=== PATIENT | male | born 1960 | race Caucasian/White ===

== ENCOUNTER 2021-07-28 09:12 | Inpatient (IN) | payer OTHER ==
[2021-07-28 09:30] VITALS: BMI 23.8
[2021-07-28] MEDS ORDERED: ACETAMINOPHEN 325 MG TABLET (FP) PO PRN ×2 (10:17)
[2021-07-28] MEDS ORDERED: NICOTINE POLACRILEX 4 MG GUM BUC PRN (10:17)
[2021-07-28] MEDS ORDERED: cloNIDine HCL 0.1 MG TABLET PO PRN (10:17)
[2021-07-28] MEDS ORDERED: MAG HYDROX/AL HYDROX/SIMETH 30 ML UNIT-DOSE CUP PO PRN (10:17)
[2021-07-28] MEDS ORDERED: ONDANSETRON *ODT* 4 MG TABLET SL PRN (10:17)
[2021-07-28] MEDS ORDERED: NICOTINE 10 MG CARTRIDGE (INHALER) IH PRN (10:17)
[2021-07-28] MEDS ORDERED: MAGNESIUM HYDROX 2400MG/30ML ORAL SUSPENSION 30 ML CUP PO PRN (10:17)
[2021-07-28] MEDS ORDERED: MENTHOL/PHENOL 1 EACH UD MM PRN (10:17)
[2021-07-28] MEDS ORDERED: BISMUTH SUBSALICYLATE 524 MG/30 ML PO PRN (10:17)
[2021-07-28] MEDS ORDERED: IBUPROFEN 400 MG TABLET (FP) PO PRN (10:17)
[2021-07-28] MEDS ORDERED: methaDONE HCL 10 MG TABLET (FOR DETOX USE ONLY) PO ONE (10:17)
[2021-07-28] MEDS ORDERED: NICOTINE 21 MG/24 HOURS TOPICAL PATCH TD PRN (10:17)
[2021-07-28] MEDS ORDERED: MAGNESIUM CITRATE 300 ML BOTTLE PO PRN (10:17)
[2021-07-28] MEDS ORDERED: ALBUTEROL SO4 HFA INHALER IH PRN (10:29)
[2021-07-28] MEDS: BUDESONIDE/FORMETEROL FUMARATE 160/4.5 mcg INHALER IH SCH ×2 (11:35→22:36)
[2021-07-28] MEDS: METHOCARBAMOL 500 MG TABLET PO PRN (11:35)
[2021-07-28] MEDS: TAMSULOSIN HCL 0.4 MG CAP PO SCH (11:35)
[2021-07-28] MEDS: PANTOPRAZOLE 20 MG TABLET PO SCH (11:37)
[2021-07-28] MEDS: PRENATAL VITAMINS W/ FOLIC ACID TABLET (FP) PO SCH (11:38)
[2021-07-28] MEDS: METHYL SALICYLATE/MENTHOL OINT 30 GM TUBE TP SCH ×2 (13:49→22:35)
[2021-07-28] MEDS ORDERED: FLUoxetine HCL 20 MG CAPSULE PO ONE (14:00)
[2021-07-28] MEDS ORDERED: traZODone HCL 100 MG TABLET (FP) PO ONE (22:00)
[2021-07-28] MEDS ORDERED: PRAZOSIN HCL 1 MG CAPSULE PO ONE (22:00)
[2021-07-28] MEDS: ATORVASTATIN CA 40 MG TABLET (FP) PO SCH (22:35)
[2021-07-28] MEDS: MELATONIN 5 MG TABLETS PO SCH (22:35)
[2021-07-28] MEDS: THIAMINE HCL 100 MG TABLET (FP) PO SCH (22:36)
[2021-07-29] MEDS ORDERED: methaDONE HCL 10 MG TABLET (FOR DETOX USE ONLY) ONE (09:47)
[2021-07-29] MEDS: BUDESONIDE/FORMETEROL FUMARATE 160/4.5 mcg INHALER IH SCH ×2 (10:25→22:20)
[2021-07-29] MEDS: PRENATAL VITAMINS W/ FOLIC ACID TABLET (FP) PO SCH (10:25)
[2021-07-29] MEDS: TAMSULOSIN HCL 0.4 MG CAP PO SCH (10:26)
[2021-07-29] MEDS: PANTOPRAZOLE 20 MG TABLET PO SCH (10:26)
[2021-07-29] MEDS: METHYL SALICYLATE/MENTHOL OINT 30 GM TUBE TP SCH ×2 (10:28→22:01)
[2021-07-29] MEDS: METHOCARBAMOL 500 MG TABLET PO PRN (22:01)
[2021-07-29] MEDS: THIAMINE HCL 100 MG TABLET (FP) PO SCH (22:01)
[2021-07-29] MEDS: ATORVASTATIN CA 40 MG TABLET (FP) PO SCH (22:01)
[2021-07-29] MEDS: MELATONIN 5 MG TABLETS PO SCH (22:01)
[2021-07-30] MEDS ORDERED: methaDONE HCL 10 MG TABLET (FOR DETOX USE ONLY) PO ONE (10:00)
[2021-07-30 10:17] LABS: HEMOGLOBIN 13.1 GM/dL (11.7-16.9); MCH 28.8 pg (25.7-33.7); MCHC 32.8 g/dl (32.0-35.9); MEAN CELL VOLUME 87.9 fl (80-96); MEAN PLT VOLUME 7.8 fl (7.5-11.1); PLATELET COUNT 391 10^3/uL (134-434); RBC 4.55 M/mm3 (4.00-5.60); RDW 16.1 % (11.9-15.9); WHITE BLOOD COUNT 7.4 K/mm3 (4.0-10.0)
[2021-07-30 10:19] LABS: BLOOD UREA NITROGEN 10.2 mg/dL (7-18); CALCIUM 9.1 mg/dL (8.5-10.1)
[2021-07-30 10:20] LABS: ALBUMIN 3.1 g/dl (3.4-5.0)
[2021-07-30] MEDS: TAMSULOSIN HCL 0.4 MG CAP PO SCH (10:22)
[2021-07-30] MEDS: PANTOPRAZOLE 20 MG TABLET PO SCH (10:22)
[2021-07-30] MEDS: BUDESONIDE/FORMETEROL FUMARATE 160/4.5 mcg INHALER IH SCH ×2 (10:22→22:53)
[2021-07-30] MEDS: PRENATAL VITAMINS W/ FOLIC ACID TABLET (FP) PO SCH (10:22)
[2021-07-30] MEDS: METHYL SALICYLATE/MENTHOL OINT 30 GM TUBE TP SCH ×2 (10:23→22:31)
[2021-07-30 10:25] LABS: BILIRUBIN,TOTAL 0.2 mg/dL (0.2-1); TOT PROT 6.3 g/dl (6.4-8.2)
[2021-07-30 13:47] LABS: HIV INTERPRETATION NEGATIVE (NEGATIVE)
[2021-07-30] MEDS: ATORVASTATIN CA 40 MG TABLET (FP) PO SCH (22:53)
[2021-07-30] MEDS: THIAMINE HCL 100 MG TABLET (FP) PO SCH (22:53)
[2021-07-30] MEDS: MELATONIN 5 MG TABLETS PO SCH (22:53)
[2021-07-31] MEDS ORDERED: methaDONE HCL 10 MG TABLET (FOR DETOX USE ONLY) ONE (09:20)
[2021-07-31] MEDS: PANTOPRAZOLE 20 MG TABLET PO SCH (10:14)
[2021-07-31] MEDS: TAMSULOSIN HCL 0.4 MG CAP PO SCH (10:14)
[2021-07-31] MEDS: BUDESONIDE/FORMETEROL FUMARATE 160/4.5 mcg INHALER IH SCH ×2 (10:14→22:51)
[2021-07-31] MEDS: PRENATAL VITAMINS W/ FOLIC ACID TABLET (FP) PO SCH (10:14)
[2021-07-31] MEDS: METHYL SALICYLATE/MENTHOL OINT 30 GM TUBE TP SCH ×2 (10:16→22:51)
[2021-07-31] MEDS: ATORVASTATIN CA 40 MG TABLET (FP) PO SCH (22:44)
[2021-07-31] MEDS: THIAMINE HCL 100 MG TABLET (FP) PO SCH (22:44)
[2021-07-31] MEDS: MELATONIN 5 MG TABLETS PO SCH (22:46)
[2021-08-01] MEDS ORDERED: methaDONE HCL 10 MG TABLET (FOR DETOX USE ONLY) PO ONE (10:00)
[2021-08-01] MEDS: TAMSULOSIN HCL 0.4 MG CAP PO SCH (10:02)
[2021-08-01] MEDS: PRENATAL VITAMINS W/ FOLIC ACID TABLET (FP) PO SCH (10:02)
[2021-08-01] MEDS: PANTOPRAZOLE 20 MG TABLET PO SCH (10:02)
[2021-08-01] MEDS: BUDESONIDE/FORMETEROL FUMARATE 160/4.5 mcg INHALER IH SCH ×2 (10:03→22:57)
[2021-08-01] MEDS: METHYL SALICYLATE/MENTHOL OINT 30 GM TUBE TP SCH ×2 (10:03→22:57)
[2021-08-01] MEDS: ATORVASTATIN CA 40 MG TABLET (FP) PO SCH (22:57)
[2021-08-01] MEDS: MELATONIN 5 MG TABLETS PO SCH (22:57)
[2021-08-01] MEDS: THIAMINE HCL 100 MG TABLET (FP) PO SCH (22:58)
[2021-08-02 10:03] VITALS: BP 104/64; PULSE 59; TEMP 97.8
[2021-08-02] MEDS: PANTOPRAZOLE 20 MG TABLET PO SCH (10:45)
[2021-08-02] MEDS: BUDESONIDE/FORMETEROL FUMARATE 160/4.5 mcg INHALER IH SCH (10:45)
[2021-08-02] MEDS: METHYL SALICYLATE/MENTHOL OINT 30 GM TUBE TP SCH (10:45)
[2021-08-02] MEDS: PRENATAL VITAMINS W/ FOLIC ACID TABLET (FP) PO SCH (10:45)
[2021-08-02] MEDS: TAMSULOSIN HCL 0.4 MG CAP PO SCH (10:45)
== END 2021-08-02 12:30 | disposition home or self-care (01) | DRG 773 ==
LOC: YASAS 09:12 → Y6N 10:31
PROVIDERS: ADMIT Allergy & Immunology; ATTEND Allergy & Immunology
PROC: HZ2ZZZZ Detoxification Services for Substance Abuse Treatment (ICD-10-PCS; principal; 2021-07-28)
DX: F11.23 Opioid dependence with withdrawal (principal); F17.210 Nicotine dependence, cigarettes, uncomplicated; F31.9 Bipolar disorder, unspecified; F41.9 Anxiety disorder, unspecified; F90.9 Attention-deficit hyperactivity disorder, unspecified type; F43.10 Post-traumatic stress disorder, unspecified; J44.9 Chronic obstructive pulmonary disease, unspecified; K21.9 Gastro-esophageal reflux disease without esophagitis; M54.50 Low back pain, unspecified; G89.29 Other chronic pain; N40.0 Benign prostatic hyperplasia without lower urinary tract symptoms; Z87.19 Personal history of other diseases of the digestive system; Z91.018 Allergy to other foods; Z91.013 Allergy to seafood; Z59.02 Unsheltered homelessness
CPT/HCPCS: 36415; 80053; 85027; 86780; 87389; 93005; 93010; C9803; U0003; U0005